=== PATIENT | male | born 1990 | race Two or more races ===

== ENCOUNTER 2024-12-17 18:54 | Emergency (ER) | payer SELFPAY ==
[~2024-12-17] VITALS: Ht 190.5 cm; Wt 73.0 kg
[2024-12-17 18:57] VITALS: O2SAT 95
[2024-12-17 19:45] LABS: *AMPHETAMINES SCREEN URINE NEGATIVE (NEGATIVE); *BARBITURATES SCREEN URINE NEGATIVE (NEGATIVE); *BENZODIAZEPINES SCREEN URINE NEGATIVE (NEGATIVE); *COCAINE SCREEN URINE NEGATIVE (NEGATIVE); CANNABINOID URINE SCREEN PRESUMPTIVE POSITIVE (NEGATIVE); ECSTASY MDMA SCREEN URINE NEGATIVE (NEGATIVE); METHADONE URINE SCREEN NEGATIVE (NEGATIVE); OPIATES URINE SCREEN NEGATIVE (NEGATIVE); PHENCYCLIDINE URINE SCREEN NEGATIVE (NEGATIVE)
[2024-12-17 20:17] LABS: BASOPHILS % 0.9 % (0.0-2.0); EOSINOPHILS % 3.4 % (0.0-5.0); HEMATOCRIT. 41.3 % (42.0-52.0); HEMOGLOBIN. 13.7 g/dL (14.0-18.0); LYMPHOCYTES % 37.3 % (20.0-50.0); MEAN PLATELET VOLUME 7.4 fl (7.4-10.4); MONOCYTES % 9.5 % (2.0-8.0); NEUTROPHILS % 48.9 % (40.0-76.0); PLATELET 200 x1000/uL (130-400); RED BLOOD CELL COUNT 4.33 mill/uL (4.7-6.1); RED CELL DISTRIBUTION WIDTH 14.6 % (11.6-14.6)
[2024-12-17 20:24] LABS: CREATININE 0.9 mg/dL (0.6-1.3)
[2024-12-17 20:25] LABS: UREA NITROGEN BLOOD 11 mg/dL (9-23)
[2024-12-17 20:26] LABS: ASPARTATE AMINOTRANSFERASE 57 IU/L (<34); BILIRUBIN DIRECT 0.2 mg/dL (<=3.0)
[2024-12-17 20:27] LABS: BILIRUBIN TOTAL 0.6 mg/dL (0.1-1.0); PROTEIN TOTAL 5.7 g/dL (6.0-8.3)
[2024-12-18] MEDS: OLANZAPINE 5MG TABLET ODT PO SCH (22:15)
[2024-12-19 19:53] VITALS: BP 117/63; PULSE 84; RESP 16; TEMP 36.6; O2SAT 98
== END 2024-12-19 20:16 ==
LOC: ER 18:54 → EDSEX 18:54 → ER 12-19 20:16
DX: R45.851 Suicidal ideations (principal); F25.9 Schizoaffective disorder, unspecified; R11.10 Vomiting, unspecified; R50.9 Fever, unspecified; Z72.0 Tobacco use; Z79.899 Other long term (current) drug therapy; Z20.822 Contact with and (suspected) exposure to COVID-19
CPT/HCPCS: 36415; 80048; 80076; 80305; 80307; 80320; 80329; 83735; 85025; 87426; 99285; G0480